=== PATIENT | female | born 1955 ===

== ENCOUNTER 2024-08-04 07:30 | Inpatient (IN) | payer OTHER ==
[~2024-08-04] VITALS: Ht 152.4 cm; Wt 72.6 kg
[2024-08-04 08:57] LABS: URINE CAST 2.74 uL (0.0-1.40); URINE RBC 47.3 uL (0.0-20.8); URINE WBC 585.1 uL (0.0-23.2)
[2024-08-04 08:58] LABS: HEMATOCRIT 35.3 % (36.0-45.00); HEMOGLOBIN 12.5 g/dL (12.0-15.00); MEAN CELL VOLUME 92.2 fL (80.00-100.00); MEAN CORPUSCULAR HEMOGLOBIN 32.6 pg (27.00-32.0); MEAN CORPUSCULAR HGB CONC 35.3 g/dl (32.0-36.0); PLATELET COUNT 382 K/uL (150-450); RED BLOOD COUNT 3.82 M/uL (4.00-6.00); RED CELL DISTRIBUTION WIDTH 14.6 % (11.5-14.5)
[2024-08-04 09:03] LABS: URINE APPEARANCE CLOUDY; URINE BILIRRUBIN SMALL (NEGATIVE); URINE BLOOD MODERATE; URINE COLOR DK YELLOW; URINE GLUCOSE NEGATIVE (NEGATIVE); URINE KETONE NEGATIVE (NEGATIVE); URINE LEUKOCYTE TRACE; URINE NITRATE POSITIVE; URINE PROTEIN 30 (NEGATIVE); URINE UROBILINOGEN 0.2 E.U./dl
[2024-08-04 09:22] VITALS: BP 137/72
[2024-08-04 09:27] VITALS: BP 121/78
[2024-08-04 09:27] LABS: INR 1.07; PARTIAL THROMBOPLASTIN TIME 28.8 SECONDS (22.0-34.0); PROTHROMBIN TIME 11.6 SECONDS (9.0-11.5)
[2024-08-04 09:50] LABS: URINE BACTERIA > 9821.5 uL (0.0-1933); URINE CRYSTALS FEW /HPF; URINE EPITHELIAL CELLS > 201.7 uL (0.0-38.8)
[2024-08-04 09:53] LABS: ALBUMIN 3.9 gm/dL (3.4-5.0); BILIRUBIN TOTAL 0.64 mg/dL (0.3-1.2); CALCIUM 9.6 mg/dL (8.5-10.1); CREATININE SERUM 0.55 mg/dL (0.55-1.02); GFR 110.25; GLOBULINA 3.7 G/DL (2.4-3.5); POTASSIUM 4.06 mEq/L (3.5-5.1); TOTAL PROTEIN 7.6 gm/dL (6.4-8.2)
[2024-08-09] MEDS ORDERED: CEFAZOLIN SODIUM 1,000 MG VIAL ONE ×2 (12:35→19:37)
[2024-08-09] MEDS ORDERED: TRANEXAMIC ACID 100MG/1ML (1000MG) AMPUL IV ONE (13:59)
[2024-08-09] MEDS ORDERED: VANCOMYCIN HCL 1,000 MG VIAL ONE (14:00)
[2024-08-09] MEDS ORDERED: BUPIVACAINE HCL/MPF 0.5% 30ML VIAL ONE (14:00)
[2024-08-09] MEDS ORDERED: KETOROLAC TROMETHAMINE 60 MG VIAL IM ONE (14:00)
[2024-08-09] MEDS ORDERED: ISOPROPYL ALCOHOL 30 ML OUNCE TOP ONE (14:01)
[2024-08-09] MEDS ORDERED: LIDOCAINE HCL 1%/EPINEPHRINE 20ML VIAL IJ ONE (14:01)
[2024-08-09] MEDS ORDERED: METHYLPREDNISOLONE ACETATE 80 MG/ML VIAL ONE (14:20)
[2024-08-09] MEDS ORDERED: POVIDONE-IODINE 118 ML BOTT TOP ONE (14:21)
[2024-08-09] MEDS ORDERED: DIPHENHYDRAMINE HCL 50 MG/ML VIAL 1ML ONE (15:12)
[2024-08-09] MEDS ORDERED: MORPHINE SULFATE 4 MG/ML VIAL IV ONE (15:15)
[2024-08-09] MEDS ORDERED: ONDANSETRON HCL 2 MG/ML VIAL IV PRN ×2 (16:00)
[2024-08-09] MEDS ORDERED: SODIUM CHLORIDE 0.45 % 1,000 ML IV SCH ×2 (16:00)
[2024-08-09] MEDS ORDERED: MORPHINE SULFATE 4 MG/ML CARTRIDGE IV PRN ×2 (16:00)
[2024-08-09] MEDS ORDERED: OxyCODONE HCL 5 MG TABLET (ROXICODONE) PO PRN ×2 (16:00)
[2024-08-09] MEDS ORDERED: GABAPENTIN 300 MG CAPSULE PO SCH ×2 (17:00)
[2024-08-09] MEDS ORDERED: CEFAZOLIN SODIUM 1,000 MG VIAL IV SCH ×2 (17:00)
[2024-08-09] MEDS ORDERED: ACETAMINOPHEN 500 MG GEL..CAP PO SCH ×2 (18:00)
[2024-08-09 22:09] VITALS: BP 137/72
[2024-08-10 01:49] VITALS: BP 112/63
[2024-08-10 06:34] LABS: HEMATOCRIT 31.9 % (36.0-45.00); HEMOGLOBIN 10.9 g/dL (12.0-15.00); MEAN CELL VOLUME 93.1 fL (80.00-100.00); MEAN CORPUSCULAR HEMOGLOBIN 31.8 pg (27.00-32.0); MEAN CORPUSCULAR HGB CONC 34.1 g/dl (32.0-36.0); PLATELET COUNT 309 K/uL (150-450); RED BLOOD COUNT 3.42 M/uL (4.00-6.00); RED CELL DISTRIBUTION WIDTH 14.5 % (11.5-14.5)
[2024-08-10] MEDS ORDERED: PERCOCET 5-3251 EACH PO (07:37)
[2024-08-10] MEDS ORDERED: ELIQUIS2.5 MG PO (07:37)
[2024-08-10] MEDS ORDERED: CEFADROXIL500 MG PO (07:37)
[2024-08-10 08:44] VITALS: BP 150/70
[2024-08-10] MEDS ORDERED: SENNOSIDES 1 TAB TABLET PO SCH ×2 (09:00)
[2024-08-10] MEDS ORDERED: APIXABAN 2.5 MG TABLET PO SCH ×2 (09:00)
[2024-08-10 13:00] LABS: ALBUMIN 3.3 gm/dL (3.4-5.0); BILIRUBIN TOTAL 0.67 mg/dL (0.3-1.2); CALCIUM 9.2 mg/dL (8.5-10.1); CREATININE SERUM 0.61 mg/dL (0.55-1.02); GFR 97.83; GLOBULINA 3.7 G/DL (2.4-3.5); POTASSIUM 4.55 mEq/L (3.5-5.1)
[2024-08-10 14:06] VITALS: BP 92/60
[2024-08-10] MEDS ORDERED: Cyanocobalamin/Mecobalamin 1 TAB.SL SL SCH (17:00)
[2024-08-10] MEDS ORDERED: VITAMIN B COMPLEX 1 EACH PO SCH (17:00)
[2024-08-10] MEDS ORDERED: SOD FERRIC GLUC COMPLX/SUCROSE 62.5 MG/5 ML AMPUL IV SCH (17:00)
[2024-08-10] MEDS ORDERED: CEFADROXIL 500 MG CAPSULE PO SCH (17:00)
[2024-08-10 17:48] VITALS: BP 115/69
[2024-08-10 19:23] LABS: PH,URINE 6.5 (5.0-8.0); URINE APPEARANCE Cloudy; URINE BILIRRUBIN Negative (NEGATIVE); URINE BLOOD Moderate; URINE COLOR Yellow; URINE GLUCOSE Negative (NEGATIVE); URINE KETONE Trace (NEGATIVE); URINE LEUKOCYTE Negative; URINE NITRATE Negative; URINE PROTEIN Negative (NEGATIVE); URINE UROBILINOGEN 0.2 E.U./dl
[2024-08-10 19:24] LABS: URINE BACTERIA 1620.2 uL (0.0-1933); URINE EPITHELIAL CELLS 49.5 uL (0.0-38.8); URINE RBC 84.2 uL (0.0-20.8); URINE WBC 17.7 uL (0.0-23.2)
[2024-08-11 02:07] VITALS: BP 111/68
[2024-08-11 06:34] LABS: HEMATOCRIT 28.9 % (36.0-45.00); HEMOGLOBIN 9.7 g/dL (12.0-15.00); MEAN CELL VOLUME 94.5 fL (80.00-100.00); MEAN CORPUSCULAR HEMOGLOBIN 31.6 pg (27.00-32.0); MEAN CORPUSCULAR HGB CONC 33.5 g/dl (32.0-36.0); PLATELET COUNT 285 K/uL (150-450); RED BLOOD COUNT 3.06 M/uL (4.00-6.00); RED CELL DISTRIBUTION WIDTH 14.2 % (11.5-14.5)
[2024-08-11 08:00] VITALS: BP 124/74
[2024-08-11] MEDS ORDERED: IRON FUM,PS/FOLIC ACID/VITC/B3 1 CAP CAPSULE PO SCH ×2 (09:00)
== END 2024-08-11 15:49 | disposition home or self-care (01) | DRG 470 ==
LOC: O/R 08-09 06:26 → OB/GYN 08-09 06:26 → SURH 08-09 07:30 → OB/GYN 08-09 16:55
PROVIDERS: ADMIT Orthopaedic Surgery; ATTEND Orthopaedic Surgery
PROC: 0SUD07Z Supplement Left Knee Joint with Autologous Tissue Substitute, Open Approach (ICD-10-PCS; 2024-08-09)
PROC: 0SRD0J9 Replacement of Left Knee Joint with Synthetic Substitute, Cemented, Open Approach (ICD-10-PCS; principal; 2024-08-09 10:15)
DX: M17.12 Unilateral primary osteoarthritis, left knee (principal); D62 Acute posthemorrhagic anemia; M22.12 Recurrent subluxation of patella, left knee

== ENCOUNTER 2025-01-18 08:15 | Inpatient (IN) | payer OTHER ==
[~2025-01-18] VITALS: Ht 152.4 cm; Wt 69.4 kg
[~2025-01-18 08:15] MED LIST: CEFADROXIL500 MG PO; ELIQUIS2.5 MG PO; PERCOCET 5-3251 EACH PO
[2025-01-18 09:54] LABS: PH,URINE 5.5 (5.0-8.0); URINE APPEARANCE Cloudy; URINE BILIRRUBIN Negative (NEGATIVE); URINE BLOOD Moderate; URINE COLOR Yellow; URINE GLUCOSE Negative (NEGATIVE); URINE KETONE Negative (NEGATIVE); URINE LEUKOCYTE Trace; URINE NITRATE Positive; URINE PROTEIN Negative (NEGATIVE); URINE UROBILINOGEN 0.2 E.U./dl
[2025-01-18 09:55] VITALS: BP 112/74
[2025-01-18 09:55] LABS: HEMATOCRIT 37.2 % (36.0-45.00); HEMOGLOBIN 12.3 g/dL (12.0-15.00); MEAN CELL VOLUME 91.9 fL (80.00-100.00); MEAN CORPUSCULAR HEMOGLOBIN 30.4 pg (27.00-32.0); MEAN CORPUSCULAR HGB CONC 33.1 g/dl (32.0-36.0); PLATELET COUNT 366 K/uL (150-450); RED BLOOD COUNT 4.05 M/uL (4.00-6.00); RED CELL DISTRIBUTION WIDTH 15.8 % (11.5-14.5); URINE RBC 42.4 uL (0.0-20.8); URINE WBC 167.3 uL (0.0-23.2)
[2025-01-18 10:01] LABS: URINE BACTERIA > 9821.5 uL (0.0-1933); URINE CAST 0.44 uL (0.0-1.40)
[2025-01-18 10:14] LABS: INR 1.05; PARTIAL THROMBOPLASTIN TIME 26.5 SECONDS (22.0-34.0); PROTHROMBIN TIME 11.4 SECONDS (9.0-11.5)
[2025-01-18 10:22] LABS: URINE CRYSTALS FEW /HPF
[2025-01-18 10:59] LABS: ALBUMIN 3.7 gm/dL (3.4-5.0); BILIRUBIN TOTAL 0.56 mg/dL (0.3-1.2); CALCIUM 9.5 mg/dL (8.5-10.1); CREATININE SERUM 0.54 mg/dL (0.55-1.02); GFR 112.27; POTASSIUM 4.21 mEq/L (3.5-5.1); TOTAL PROTEIN 7.7 gm/dL (6.4-8.2)
[2025-01-18 11:55] LABS: RH POSITIVE
[2025-01-24] MEDS ORDERED: BUPIVACAINE HCL/PF 0.25% 30ML VIAL InF ONE (18:00)
[2025-01-24] MEDS ORDERED: POVIDONE-IODINE 118 ML BOTT TOP ONE (18:00)
[2025-01-24] MEDS ORDERED: MORPHINE SULFATE 4 MG/ML VIAL IV ONE ×2 (18:00→20:30)
[2025-01-24] MEDS ORDERED: CEFAZOLIN SODIUM 1,000 MG VIAL IV ONE (18:00)
[2025-01-24] MEDS ORDERED: VANCOMYCIN HCL 1,000 MG VIAL IR ONE (18:00)
[2025-01-24] MEDS ORDERED: KETOROLAC TROMETHAMINE 60 MG VIAL IM ONE (18:00)
[2025-01-24] MEDS ORDERED: LIDOCAINE HCL 1%/EPINEPHRINE 20ML VIAL IJ ONE (18:00)
[2025-01-24] MEDS ORDERED: TRANEXAMIC ACID 100MG/1ML (1000MG) AMPUL IV ONE (18:00)
[2025-01-24] MEDS ORDERED: SODIUM CHLORIDE 0.45 % 1,000 ML IV SCH (18:30)
[2025-01-24] MEDS ORDERED: MORPHINE SULFATE 4 MG/ML CARTRIDGE IV PRN (18:30)
[2025-01-24] MEDS ORDERED: OxyCODONE HCL 5 MG TABLET (ROXICODONE) PO PRN (18:30)
[2025-01-24] MEDS ORDERED: ONDANSETRON HCL 2 MG/ML VIAL IV PRN (18:30)
[2025-01-24 22:54] VITALS: BP 139/75; O2SAT 99
[2025-01-25] MEDS ORDERED: ACETAMINOPHEN 500 MG GEL..CAP PO SCH
[2025-01-25 00:04] VITALS: BP 96/53; O2SAT 99
[2025-01-25] MEDS ORDERED: GABAPENTIN 300 MG CAPSULE PO SCH (01:00)
[2025-01-25] MEDS ORDERED: CEFAZOLIN SODIUM 1,000 MG VIAL IV SCH (01:00)
[2025-01-25 05:00] VITALS: BP 131/70
[2025-01-25 07:36] LABS: HEMATOCRIT 32.2 % (36.0-45.00); HEMOGLOBIN 10.7 g/dL (12.0-15.00); MEAN CELL VOLUME 92.9 fL (80.00-100.00); MEAN CORPUSCULAR HEMOGLOBIN 30.9 pg (27.00-32.0); MEAN CORPUSCULAR HGB CONC 33.3 g/dl (32.0-36.0); PLATELET COUNT 312 K/uL (150-450); RED BLOOD COUNT 3.47 M/uL (4.00-6.00); RED CELL DISTRIBUTION WIDTH 15.1 % (11.5-14.5)
[2025-01-25] MEDS ORDERED: CEFADROXIL500 MG PO (08:13)
[2025-01-25] MEDS ORDERED: PERCOCET 5-3251 EACH PO (08:13)
[2025-01-25] MEDS ORDERED: ELIQUIS2.5 MG PO (08:13)
[2025-01-25] MEDS ORDERED: APIXABAN 2.5 MG TABLET PO SCH (09:00)
[2025-01-25] MEDS ORDERED: SENNOSIDES 1 TAB TABLET PO SCH (09:00)
[2025-01-25] MEDS ORDERED: SOD FERRIC GLUC COMPLX/SUCROSE 62.5 MG/5 ML AMPUL IV SCH (12:56)
[2025-01-25] MEDS ORDERED: Cyanocobalamin/Mecobalamin 1 TAB.SL SL SCH (12:57)
[2025-01-25 14:31] VITALS: BP 107/56; O2SAT 95
[2025-01-25 16:00] VITALS: BP 132/67; O2SAT 98
[2025-01-25] MEDS ORDERED: VITAMIN B COMPLEX 1 EACH PO SCH (17:00)
[2025-01-26 00:29] VITALS: BP 120/68; O2SAT 95
[2025-01-26 06:55] LABS: HEMOGLOBIN 9.6 g/dL (12.0-15.00); MEAN CELL VOLUME 91.4 fL (80.00-100.00); MEAN CORPUSCULAR HEMOGLOBIN 31.4 pg (27.00-32.0); MEAN CORPUSCULAR HGB CONC 34.3 g/dl (32.0-36.0); PLATELET COUNT 284 K/uL (150-450); RED BLOOD COUNT 3.06 M/uL (4.00-6.00); RED CELL DISTRIBUTION WIDTH 14.5 % (11.5-14.5)
[2025-01-26 08:00] VITALS: BP 118/71; O2SAT 95
[2025-01-26] MEDS ORDERED: IRON FUM,PS/FOLIC ACID/VITC/B3 1 CAP CAPSULE PO SCH (09:00)
== END 2025-01-26 17:27 | disposition home or self-care (01) | DRG 470 ==
LOC: SURG 08:15 → O/R 01-24 06:15 → SURG 01-24 06:15
PROVIDERS: ADMIT Orthopaedic Surgery; ATTEND Orthopaedic Surgery
PROC: 0SRC0J9 Replacement of Right Knee Joint with Synthetic Substitute, Cemented, Open Approach (ICD-10-PCS; principal; 2025-01-24 07:00)
DX: M17.11 Unilateral primary osteoarthritis, right knee (principal); D62 Acute posthemorrhagic anemia; M22.11 Recurrent subluxation of patella, right knee; M06.9 Rheumatoid arthritis, unspecified